=== PATIENT | female | born 1960 | race Caucasian/White ===

== ENCOUNTER 2023-08-02 19:49 | Emergency (ER) | payer SELFPAY ==
[2023-08-02] MEDS ORDERED: diphenhydrAMINE 50 MG/ML SDV IVPUSH ONE (19:55)
[2023-08-02] MEDS ORDERED: methylPREDNISolone Sodium Succinate 125 MG/2 ML SDV IVPUSH ONE (19:55)
[2023-08-02] MEDS ORDERED: Famotidine 20 MG/2 ML SDV IVPUSH ONE (19:55)
== END 2023-08-02 20:35 | disposition home or self-care (01) ==
LOC: MW.ED 19:49
DX: T78.40XA Allergy, unspecified, initial encounter (principal); Z91.018 Allergy to other foods
CPT/HCPCS: 96374; 96375; 99283; J1200; J2930; J3490; 99284